=== PATIENT | male | born 1950 | race Caucasian/White ===

== ENCOUNTER 2016-08-27 08:36 | Outpatient (CLI) | payer MEDICARE, OTHER | END 2016-08-27 08:37 | disposition home or self-care (01) | DX: E11.9 Type 2 diabetes mellitus without complications (principal); I10 Essential (primary) hypertension; Z79.899 Other long term (current) drug therapy ==

== ENCOUNTER 2016-12-07 11:36 | Outpatient (CLI) | payer MEDICARE, OTHER | END 2016-12-07 23:59 | disposition home or self-care (01) | DX: E11.9 Type 2 diabetes mellitus without complications (principal) ==

== ENCOUNTER 2017-03-16 15:12 | Outpatient (CLI) | payer MEDICARE, OTHER ==
[2017-03-16 19:06] LABS: CALCIUM 9.8 mg/dL (8.5-10.3); CREATININE 1.2 mg/dL (0.6-1.2)
[2017-03-16 19:35] LABS: HEMOGLOBIN A1C 0.79 g/dL
== END 2017-03-16 15:13 ==
LOC: LAB.N 15:12
PROVIDERS: ATTEND Family Medicine
DX: E11.9 Type 2 diabetes mellitus without complications (principal)
CPT/HCPCS: 36415; 80048; 83036

== ENCOUNTER 2017-04-08 09:15 | Outpatient (CLI) | payer MEDICARE, OTHER | END 2017-04-08 09:45 | disposition home or self-care (01) | LOC: RT.N 09:15 | PROVIDERS: ATTEND Family Medicine | DX: Z86.79 Personal history of other diseases of the circulatory system (principal); L30.1 Dyshidrosis [pompholyx] | CPT/HCPCS: 93005 ==

== ENCOUNTER 2017-04-23 10:01 | Emergency (ER) | payer MEDICARE, OTHER ==
[2017-04-23] MEDS ORDERED: IPRATROPIUM/ALBUTEROL 3 ML NEB INH STA (10:33)
[2017-04-23] MEDS ORDERED: predniSONE 20 MG TABLET PO STA (10:33)
[2017-04-23] MEDS ORDERED: predniSONE 20 MG TABLET ONE (10:41)
--- NOTE | 2017-04-23 10:41 | ED Physician Documentation ---
History of Present Illness - Stated complaint Stated Complaint: SOA - Chief complaint Chief Complaint: Resp - Additonal information Additional information: Patient is a 67-year-old man with history of hypertension, diabetes, atrial fibrillation on flecainide and aspirin who presents with shortness of breath cough and congestion for 1 day. The cough is nonproductive he has not had a fever. There is no chest pain or chest heaviness. He does have a distant history of smoking for over 40 years but does not have a diagnosis COPD or emphysema. He does not use inhalers. He has been sick for 1 day. There is no nausea vomiting constipation diarrhea lower urinary symptoms. Review of systems: For pertinent positive and negatives in the review of systems please see the history of present illness, otherwise all other systems have been reviewed and are negative. Dragon disclaimer: Parts of this medical record were created using voice recognition technology. Because of the inherent limitations of this system, occasional same sounding word substitutions do occur and persist despite proofreading. Please read the document for context. Review of Systems Cardiac: denies: Chest pain / pressure, Palpitations Respiratory: reports: Dyspnea, Cough GI: denies: Abdominal Pain, Abdominal Swelling, Nausea, Vomiting : denies: Dysuria, Frequency, Hesitancy PD PAST MEDICAL HISTORY - Past Medical History Cardiovascular: Hypertension, High cholesterol, Atrial fibrillation Respiratory: None Endocrine/Autoimmune: None GI: Colon polyps : Benign prostate hypertrophy, Renal insuffiency, Nocturia HEENT: None Psych: None Musculoskeletal: None Derm: None - Past Surgical History Past Surgical History: Yes General: Appendectomy, Colonoscopy HEENT: Tonsil/Adenoidectomy - Present Medications Home Medications: Ambulatory Orders Medication Instructions Recorded Confirmed Aspirin [Aspir 81] 81 mg PO DAILY 04/03/13 05/28/16 Butalb/Acetam/Caff 50/325/40 1 each PO Q4-6H PRN 04/03/13 05/28/16 [Fioricet] Metoprolol Succinate [Toprol Xl] 50 mg PO DAILY 04/03/13 05/28/16 Calcium Carbonate [Calcium] 600 mg PO DAILY 04/06/13 05/28/16 Cholecalciferol (Vitd3)/Vit K2 [D3 2,000 each PO DAILY 04/06/13 05/28/16 + K2 Dots 1,000 Units Tab] Magnesium Oxide/Mag Aa Chelate 300 mg PO DAILY 04/06/13 05/28/16 [Magnesium 300 mg Capsule] Ubidecarenone/Vit E Acetate [Co 1 each PO DAILY 04/06/13 05/28/16 Q-10 100 mg Softgel] Vitamin B Complex [B Complex] 1 each PO DAILY 04/06/13 05/28/16 L. Rhamnosus GG/Inulin [Culturelle 1 each PO DAILY #14 cap.sprink 01/06/1405/28 Capsule] Albuterol Sulf [Ventolin Hfa 1 - 2 puffs INH Q4HR PRN #1 inhaler 04/23/17 Inhaler] Doxycycline Hyclate [Vibramycin] 100 mg PO BID #14 capsule 04/23/17 Prednisone 40 mg PO DAILY #8 tablet 04/23/17 - Allergies Allergies/Adverse Reactions: Allergies Allergy/AdvReac Type Severity Reaction Status Date / Time No Known Drug Allergies Allergy Verified 04/23/17 10:10 - Social History Does the pt smoke?: No Smoking Status: Never smoker Does the pt drink ETOH?: Yes - Immunizations Immunizations are current?: Yes PD ED PE NORMAL - Vitals Vital signs reviewed: Yes - General General: Alert and oriented X 3, No acute distress, Well developed/nourished - HEENT HEENT: Atraumatic, PERRL, EOMI. No: Ears normal, Moist mucous membranes, Pharynx benign, Dentition benign, Other - Neck Neck: Supple, no meningeal sign - Cardiac Cardiac: RRR, No murmur, No gallop, No rub - Respiratory Respiratory: Other (Wheezes bilaterally, prolonged expiratory phase, no respiratory distress) - Abdomen Abdomen: Normal bowel sounds, Soft - Derm Derm: Normal color, Warm and dry - Extremities Extremities: No deformity, No tenderness to palpate, Normal ROM s pain - Neuro Neuro: Alert and oriented X 3, No motor deficit - Psych Psych: Normal mood, Normal affect Results - Vitals Vitals: Vital Signs - 24 hr 04/23/17 04/23/17 10:08 10:40 Temperature 36.8 C Heart Rate 66 69 Respiratory 18 18 Rate Blood Pressure 165/81 H O2 Saturation 93 Oxygen O2 Source Room air PD MEDICAL DECISION MAKING - ED course ED course: Patient is a 67-year-old male with a distant history of heavy smoking presents with cough and congestion for 1 day. On examination is well-appearing man in no apparent distress he does have moderate end expiratory wheezing bilaterally with increased expiratory phase. Chest x-rays done and shows no acute intrathoracic disease. Is given a DuoNeb here and has marked improvement in his symptoms. I think he probably has a little latent COPD and/or viral bronchitis. Because of the recurrent pneumonias I will go ahead and prophylax him with doxycycline although there is no evidence of pneumonia today. Disposition: To home Clinical impression: 1. Acute asthmatic bronchitis exacerbation Departure - Departure Disposition: , Self Care Clinical Impression: Bronchitis Condition: Good Instructions: ED Upper Resp Infec Abx Tx, ED Bronchitis Asthmatic Follow-Up: Hansel Landin MD [Primary Care Provider] - Prescriptions: Albuterol Sulf [Ventolin Hfa Inhaler] 1 - 2 puffs INH Q4HR PRN #1 inhaler PRN Reason: Shortness Of Air/Wheezing Prednisone 40 mg PO DAILY #8 tablet Doxycycline Hyclate [Vibramycin] 100 mg PO BID #14 capsule
[2017-04-23] MEDS ORDERED: IPRATROPIUM/ALBUTEROL 3 ML NEB INH ONE (10:44)
--- NOTE | 2017-04-23 11:58 | XRAY Preliminary Report ---
Exam: XR Chest 2 View PA/LAT IMPRESSION: Negative for pneumonia, pulmonary mass or acute cardiopulmonary process. [facility] SITE ID: [id number]
--- NOTE | 2017-04-23 12:00 | XRAY Report ---
EXAM: CHEST RADIOGRAPHY EXAM DATE: 04/23/2017 11:07 AM. CLINICAL HISTORY: Cough. COMPARISON: 01/06/2014. TECHNIQUE: 2 views. FINDINGS: Lungs/Pleura: Bilateral mild/moderate emphysematous lungs without focal opacities evident. The prior patchy right basilar pulmonary opacity is no longer seen. No pleural effusion. No pneumothorax. Mediastinum: Heart and mediastinal contours are unremarkable. Other: Multilevel moderate degenerative disk disease in the mid and lower thoracic spine is noted, sl ight worsening since last exam. IMPRESSION: Negative for pneumonia, pulmonary mass or acute cardiopulmonary process. [facility] Referring Provider Line: [phone] SITE ID: [id number]
[2017-04-23] MEDS ORDERED: ALBUTEROL NEB 2.5 MG/3 ML INH STA (13:08)
[2017-04-23] MEDS ORDERED: DOXYCYCLINE 100 MG TABLET PO STA (13:08)
[2017-04-23] MEDS ORDERED: ALBUTEROL NEB 2.5 MG/3 ML INH ONE (13:15)
[2017-04-23] MEDS ORDERED: DOXYCYCLINE 100 MG TABLET PO ONE (13:19)
[2017-04-23 13:35] VITALS: BP 146/85
== END 2017-04-23 13:31 | disposition home or self-care (01) ==
LOC: ED 10:01
DX: J45.901 Unspecified asthma with (acute) exacerbation (principal); I10 Essential (primary) hypertension; E11.9 Type 2 diabetes mellitus without complications; I48.91 Unspecified atrial fibrillation; Z87.891 Personal history of nicotine dependence; Z79.82 Long term (current) use of aspirin
CPT/HCPCS: 71020; 93005; 94640; 94664; 99283; A9270; J7512; J7613; J7620

== ENCOUNTER 2017-08-19 10:25 | Outpatient (CLI) | payer MEDICARE, OTHER ==
[2017-08-19 13:07] LABS: ALBUMIN 4.4 g/dL (3.2-5.5); ALBUMIN/GLOBULIN RATIO 1.5 (1.0-2.2); BILIRUBIN,TOTAL 0.5 mg/dL (0.2-1.0); CALCIUM 9.1 mg/dL (8.5-10.3); CREATININE 1.1 mg/dL (0.6-1.2); TOTAL PROTEIN 7.3 g/dL (6.7-8.2)
[2017-08-19 13:11] LABS: HEMOGLOBIN A1C 0.78 g/dL; HEMOGLOBIN A1C % 6.3 % (4.6-6.2)
== END 2017-08-19 10:26 | disposition home or self-care (01) ==
LOC: LAB.N 10:25
PROVIDERS: ATTEND Family Medicine
DX: E11.9 Type 2 diabetes mellitus without complications (principal)
CPT/HCPCS: 36415; 80048; 80053; 83036

== ENCOUNTER 2017-10-21 08:00 | Outpatient (CLI) | payer MEDICARE, OTHER ==
[2017-10-21 19:34] LABS: CALCIUM 8.8 mg/dL (8.5-10.3); CREATININE 1.2 mg/dL (0.6-1.2)
== END 2017-10-21 23:59 | disposition home or self-care (01) ==
LOC: LAB.N 08:00
PROVIDERS: ATTEND Family Medicine
DX: E11.9 Type 2 diabetes mellitus without complications (principal)
CPT/HCPCS: 36415; 80048

== ENCOUNTER 2018-03-08 08:00 | Outpatient (CLI) | payer MEDICARE, OTHER ==
[2018-03-08 12:36] LABS: BASOPHILS % (AUTO) 0.5 %; EOSINOPHILS # (AUTO) 0.5 10^3/uL (0.0-0.7); EOSINOPHILS % (AUTO) 6.7 %; HGB - HEMOGLOBIN 15.5 g/dL (14.0-18.0); LYMPHOCYTES # (AUTO) 1.9 10^3/uL (1.5-3.5); LYMPHOCYTES % (AUTO) 25.3 %; MEAN CORPUSCULAR HEMOGLOBIN 32.9 pg (27.0-31.0); MEAN CORPUSCULAR HGB CONC 33.9 g/dL (32.0-36.0); MEAN CORPUSCULAR VOLUME 97.1 fL (80.0-94.0); MEAN PLATELET VOLUME 9.7 fL (7.4-11.4); MONOCYTES # (AUTO) 0.9 10^3/uL (0.0-1.0); MONOCYTES % (AUTO) 11.5 %; NEUTROPHILS # (AUTO) 4.3 10^3/uL (1.5-6.6); PLT - PLATELET COUNT 177 10^3/uL (130-450); RED CELL DISTRIBUTION WIDTH 13.6 % (12.0-15.0); WHITE BLOOD COUNT 7.6 x10^3/uL (4.8-10.8)
[2018-03-08 12:52] LABS: ALBUMIN 3.8 g/dL (3.2-5.5); ALBUMIN/GLOBULIN RATIO 1.1 (1.0-2.2); ALKALINE PHOSPHATASE 61 IU/L (42-121); ALT ALANINE AMINOTRANSFERASE 60 IU/L (10-60); AST ASPARTATE AMINOTRANSFERASE 50 IU/L (10-42); BILIRUBIN,TOTAL 0.7 mg/dL (0.2-1.0); BUN - BLOOD UREA NITROGEN 15 mg/dL (6-20); CALCIUM 8.6 mg/dL (8.5-10.3); CARBON DIOXIDE - CO2 24 mmol/L (21-32); CHLORIDE 104 mmol/L (101-111); CHOL/HDL RATIO 4.7 (<5.0); CHOLESTEROL 182 mg/dL; CREATININE 1.2 mg/dL (0.6-1.2); GFR - MDRD 60 (>89); GLUCOSE 120 mg/dL (70-100); HDL CHOLESTEROL 39 mg/dL; LDL CHOLESTEROL,CALCULATED 114 mg/dL; LDL/HDL RATIO 2.9 (<3.6); SODIUM 136 mmol/L (135-145); TOTAL PROTEIN 7.2 g/dL (6.7-8.2); VLDL CHOLESTEROL 29 mg/dL
[2018-03-08 12:57] LABS: HB2 TOTAL 16.2 g/dL; HEMOGLOBIN A1C 0.84 g/dL; HEMOGLOBIN A1C % 6.9 % (4.6-6.2)
[2018-03-08 13:09] LABS: RBC MORPHOLOGY (MULTIPLE) 2+ ANISOCYTOSIS (NORMAL)
== END 2018-03-08 08:01 ==
LOC: LAB.N 08:00
PROVIDERS: ATTEND Family Medicine
DX: E11.9 Type 2 diabetes mellitus without complications (principal); Z79.899 Other long term (current) drug therapy; I10 Essential (primary) hypertension
CPT/HCPCS: 36415; 80053; 80061; 83036; 83721; 85025

== ENCOUNTER 2018-06-15 10:07 | Outpatient (CLI) | payer MEDICARE, OTHER ==
[2018-06-15 13:07] LABS: CALCIUM 9.4 mg/dL (8.5-10.3); CREATININE 1.1 mg/dL (0.6-1.2)
[2018-06-15 13:37] LABS: HB2 TOTAL 15.8 g/dL; HEMOGLOBIN A1C 0.67 g/dL
== END 2018-06-15 10:08 ==
LOC: LAB.N 10:07
PROVIDERS: ATTEND Family Medicine
DX: L60.3 Nail dystrophy (principal); L30.1 Dyshidrosis [pompholyx]; E11.9 Type 2 diabetes mellitus without complications; I10 Essential (primary) hypertension
CPT/HCPCS: 36415; 80048; 83036

== ENCOUNTER 2018-12-15 08:00 | Outpatient (CLI) | payer MEDICARE, OTHER ==
[2018-12-15 12:58] LABS: CALCIUM 9.2 mg/dL (8.5-10.3); CREATININE 1.2 mg/dL (0.6-1.2)
[2018-12-15 13:37] LABS: HB2 TOTAL 16.4 g/dL; HEMOGLOBIN A1C 0.74 g/dL; HEMOGLOBIN A1C % 6.3 % (4.6-6.2)
== END 2018-12-15 23:59 | disposition home or self-care (01) ==
LOC: LAB.N 08:00
PROVIDERS: ATTEND Physician Assistant Medical
DX: E11.9 Type 2 diabetes mellitus without complications (principal)
CPT/HCPCS: 36415; 80048; 83036

== ENCOUNTER 2018-12-19 13:18 | Outpatient (CLI) | payer MEDICARE, OTHER ==
[2018-12-19 19:50] LABS: BILIRUBIN,URINE NEGATIVE (NEGATIVE); GLUCOSE, URINE (UA) >=1000 mg/dL (NEGATIVE); KETONES,URINE (UA) NEGATIVE (NEGATIVE); LEUKOCYTE ESTERASE, URINE NEGATIVE (NEGATIVE); NITRITE,URINE NEGATIVE (NEGATIVE); OCCULT BLOOD,URINE NEGATIVE (NEGATIVE); PH,URINE 6.5 PH (5.0-7.5); PROTEIN,URINE NEGATIVE (NEGATIVE); UROBILINOGEN,URINE 0.2 (NORMAL) E.U./dL (NORMAL)
[2018-12-19 19:52] LABS: CLARITY,URINE CLEAR (CLEAR)
== END 2018-12-19 23:59 | disposition home or self-care (01) ==
LOC: LAB.N 13:18
PROVIDERS: ATTEND Physician Assistant Medical
DX: Z12.5 Encounter for screening for malignant neoplasm of prostate (principal); R35.1 Nocturia; R39.12 Poor urinary stream
CPT/HCPCS: 36415; 81003; G0103; 81001; 84153; 87086

== ENCOUNTER 2019-03-21 | Outpatient (CLI) | payer MEDICARE, OTHER | END 2019-03-21 23:59 | disposition home or self-care (01) | DX: E11.9 Type 2 diabetes mellitus without complications (principal) | CPT/HCPCS: 36415; 80048; 83036 ==

== ENCOUNTER 2019-06-01 11:04 | Outpatient (CLI) | payer MEDICARE, OTHER ==
--- NOTE | 2019-06-04 00:52 | XRAY Report ---
Reason: KNEE JOINT PAIN, LEFT Procedure Date: 06/01/2019 Accession Number: [id number] / [id number] Procedure: XRN - Knee 3 View LT CPT Code: FULL RESULT: EXAM: LEFT KNEE RADIOGRAPHY EXAM DATE: 06/01/2019 11:36 AM. CLINICAL HISTORY: KNEE JOINT PAIN, LEFT. COMPARISON: None. TECHNIQUE: 3 views. FINDINGS: Bones: There is fragmentation of superior patella with osteophyte formation. There is osteophyte formation at the tibial spines and proximal tibia, most prominent along lateral tibial plateau. Osseous structures otherwise unremarkable without evidence of fracture or bone lesion. Joints: Severe patellofemoral joint space narrowing. Mild medial and lateral compartment joint space narrowing. No subluxation or dislocation. Small suprapatellar joint effusion suspected. Soft Tissues: No significant soft tissue swelling. IMPRESSION: 1. Fragmentation of superior patella with osteophyte formation. Fragmentation is of indeterminate age with components of fracture not excluded. Correlate clinically. 2. Osteoarthritis of left knee, most prominent at patellofemoral compartment. 3. Suspect small suprapatellar joint effusion. [facility]
== END 2019-06-01 11:05 | disposition home or self-care (01) ==
LOC: DI.N 11:04
PROVIDERS: ATTEND Family Medicine
DX: M17.12 Unilateral primary osteoarthritis, left knee (principal); M25.762 Osteophyte, left knee

== ENCOUNTER 2019-07-03 11:04 | Outpatient (CLI) | payer MEDICARE, OTHER ==
--- NOTE | 2019-07-03 14:59 | XRAY Report ---
Reason: R knee pain Procedure Date: 07/03/2019 Accession Number: [id number] / [id number] Procedure: XRN - Knee 3 View RT CPT Code: Final Report FULL RESULT: EXAM: RIGHT KNEE RADIOGRAPHY EXAM DATE: 07/03/2019 11:23 AM. CLINICAL HISTORY: Right knee pain. COMPARISON: KNEE 3 VIEW LT 06/01/2019 11:32 AM. TECHNIQUE: 3 views. FINDINGS: Bones: Normal. No fractures or bone lesions. Joints: Marked narrowing of the patellofemoral compartment, with [id number] articulation in the lateral facet with marked marginal osteophyte right lateral and dorsal. There is a large detached dorsal osteophyte. Mild to moderate degenerative osteophytosis of the medial and lateral compartments, without significant associated joint space narrowing. Moderate to large suprapatellar effusion. Soft Tissues: Normal. No soft tissue swelling. IMPRESSION: 3 compartment degenerative arthritis greatest of the patellofemoral compartment as detailed. Moderate to large joint effusion. [facility]
== END 2019-07-03 11:05 | disposition home or self-care (01) ==
LOC: DI.N 11:04
PROVIDERS: ATTEND Family Medicine
DX: M17.12 Unilateral primary osteoarthritis, left knee (principal); M25.462 Effusion, left knee; G62.9 Polyneuropathy, unspecified
CPT/HCPCS: 36415; 80053

== ENCOUNTER 2019-07-03 11:42 | Outpatient (CLI) | payer MEDICARE, OTHER ==
[2019-07-03 18:39] LABS: ALBUMIN/GLOBULIN RATIO 1.3 (1.0-2.2); BILIRUBIN,TOTAL 0.8 mg/dL (0.2-1.0); CALCIUM 9.2 mg/dL (8.5-10.3); CREATININE 1.3 mg/dL (0.6-1.2); TOTAL PROTEIN 7.1 g/dL (6.7-8.2)
== END 2019-07-03 23:59 | disposition home or self-care (01) ==
LOC: LAB.N 11:42
PROVIDERS: ATTEND Family Medicine
DX: G62.9 Polyneuropathy, unspecified (principal)
CPT/HCPCS: 36415; 80053

== ENCOUNTER 2019-12-20 08:00 | Outpatient (CLI) | payer MEDICARE, OTHER ==
[2019-12-20 13:59] LABS: CALCIUM 9.3 mg/dL (8.5-10.3); CREATININE 1.1 mg/dL (0.6-1.2)
== END 2019-12-20 23:59 | disposition home or self-care (01) ==
LOC: LAB.WCP 08:00
PROVIDERS: ATTEND Nurse Practitioner Family
DX: I48.0 Paroxysmal atrial fibrillation (principal); Z79.899 Other long term (current) drug therapy; Z51.81 Encounter for therapeutic drug level monitoring
CPT/HCPCS: 36415; 80048

== ENCOUNTER 2020-06-04 08:00 | Outpatient (CLI) | payer MEDICARE, OTHER ==
[2020-06-04 18:51] LABS: BUN - BLOOD UREA NITROGEN 14 mg/dL (6-20); CALCIUM 9.2 mg/dL (8.5-10.3); CARBON DIOXIDE - CO2 26 mmol/L (21-32); CHLORIDE 106 mmol/L (101-111); CHOL/HDL RATIO 3.1 (<5.0); CHOLESTEROL 188 mg/dL; CREATININE 0.9 mg/dL (0.6-1.2); GLUCOSE 99 mg/dL (70-100); HDL CHOLESTEROL 60 mg/dL; LDL CHOLESTEROL,CALCULATED 107 mg/dL; LDL/HDL RATIO 1.8 (<3.6); SODIUM 140 mmol/L (135-145); VLDL CHOLESTEROL 21 mg/dL
[2020-06-04 20:36] LABS: HEMOGLOBIN A1c% 5.7 % (4.27-6.07)
[2020-06-04 20:38] LABS: CREATININE,URINE < 13.0 mg/dL; MICROALBUM/CREATININE RATIO,UR 130.8 ug/mg (<30.0); MICROALBUMIN,URINE 1.7 mg/dL (0-300.0)
== END 2020-06-04 23:59 | disposition home or self-care (01) ==
LOC: LAB.WCP 08:00
PROVIDERS: ATTEND Family Medicine
DX: E11.9 Type 2 diabetes mellitus without complications (principal); I10 Essential (primary) hypertension
CPT/HCPCS: 36415; 80048; 80061; 82043; 82570; 83036; 83721; 84443

== ENCOUNTER 2020-11-24 13:50 | Outpatient (CLI) | payer MEDICARE, OTHER ==
[2020-11-24 19:07] LABS: CALCIUM 9.5 mg/dL (8.5-10.3); CREATININE 1.2 mg/dL (0.6-1.2)
[2020-11-24 20:31] LABS: ESTIMATED AVERAGE GLUCOSE 123 mg/dL (70-100); HEMOGLOBIN A1c% 5.9 % (4.27-6.07)
== END 2020-11-24 23:59 | disposition home or self-care (01) ==
LOC: LAB.WCP 13:50
PROVIDERS: ATTEND Family Medicine
DX: E11.9 Type 2 diabetes mellitus without complications (principal)
CPT/HCPCS: 36415; 80048; 83036